=== PATIENT | male | born 1955 | race Caucasian/White ===

== ENCOUNTER 2021-12-05 09:22 | Day surgery (SDC) | payer OTHER ==
[~2021-12-05] VITALS: Ht 177.8 cm; Wt 77.1 kg
[~2021-12-05 09:22] MED LIST: CEFAZOLIN SOD 1 GM in D5W 50 ML IV ONE
[2021-12-05] MEDS ORDERED: NS IRRIG SOLN 1000 ML IR ONE (10:55)
[2021-12-05] MEDS ORDERED: MIDAZOLAM HCL 5 MG/5 ML VIAL IVP ONE (10:55)
[2021-12-05] MEDS ORDERED: LR 1,000 ML IV.SOLN IV ONE (10:55)
[2021-12-05] MEDS ORDERED: ONDANSETRON HCL 4 MG/2 ML VIAL IVP ONE (10:55)
[2021-12-05] MEDS ORDERED: DEXAMETHASONE SOD PHOSPHATE 4 MG/ML VIAL IVP ONE (10:55)
[2021-12-05] MEDS ORDERED: LIDOCAINE 1% 10 MG/ML, 20 ML MDV INJ ONE (10:55)
[2021-12-05] MEDS ORDERED: fentaNYL CITRATE/PF 100 MCG/2 ML AMP IVP ONE (10:55)
[2021-12-05] MEDS ORDERED: SEVOFLURANE 15 MIN GAS INH ONE (10:55)
[2021-12-05] MEDS ORDERED: BUPIVACAINE /PF 0.25% 30 ML VIAL INJ ONE (10:55)
[2021-12-05] MEDS ORDERED: MIDAZOLAM HCL 2 MG/2 ML VIAL (VERSED) IVP PRN (11:30)
[2021-12-05] MEDS ORDERED: LR 1,000 ML IV SCH (11:30)
[2021-12-05] MEDS ORDERED: MEPERIDINE HCL/PF 25 MG/ML DISP.SYRIN IVP PRN (11:30)
[2021-12-05] MEDS ORDERED: HYDROmorphone 1 MG/ML INJ. CARTRIDGE IVP PRN ×2 (11:30)
[2021-12-05] MEDS ORDERED: METOCLOPRAMIDE HCL 10 MG/2 ML VIAL IVP PRN (11:30)
[2021-12-05] MEDS ORDERED: LABETALOL 100 MG/ 20ML VIAL IVP PRN (11:30)
[2021-12-05] MEDS ORDERED: hydrALAZINE HCL 20 MG/ML VIAL IVP PRN (11:30)
[2021-12-05] MEDS ORDERED: ACETAMINOPHEN I.V. 1000 MG 100 ML IV ONE (11:36)
[2021-12-05] MEDS ORDERED: HYDROcodone/ACETAMIN 5-325 MG TAB (NORCO/ VICODIN) PO PRN (12:15)
[2021-12-05] MEDS ORDERED: D5/0.45 NS 1,000 ML IV SCH (12:15)
[2021-12-05 14:57] VITALS: BP_SYST 142
== END 2021-12-05 14:30 | disposition home or self-care (01) ==
LOC: SDS 09:22 → SMU 09:31 → SDS 14:30
PROVIDERS: ATTEND Colon & Rectal Surgery
DX: R59.0 Localized enlarged lymph nodes (principal); I10 Essential (primary) hypertension; F17.210 Nicotine dependence, cigarettes, uncomplicated; Z20.822 Contact with and (suspected) exposure to COVID-19; Z79.899 Other long term (current) drug therapy
CPT/HCPCS: 38531; 36415; 88305; 87426; J3490; J0690; J1100; J2001; J2250; J3465; J2405; J3010; J7060; J7120; J0131